=== PATIENT | female | born 1940 | race Caucasian/White ===

== ENCOUNTER 2016-12-27 12:34 | Outpatient (CLI) | payer MEDICARE, BC ==
--- NOTE | 2016-12-27 15:17 | MMO ---
SCREENING MAMMOGRAM: Date: 12/27/16 HISTORY: Screening. COMPARISON: Mammograms from 2015, 2014, 2013, 2013, and 2010. TECHNIQUE: CC and ML mammogram was performed. This patient's mammogram was interpreted with the assistance of computer-aided detection. FINDINGS: The breasts are extremely dense, which limits the sensitivity of mammography. There are benign calci fications in the left breast. No suspicious mass, microcalcifications, or architectural distortion. IMPRESSION: BIRADS 2: Benign Finding(s) Continued annual mammographic screening is recommended. POS: [facility]
--- NOTE | 2016-12-27 16:02 | BD ---
DEXA BONE MINERAL DENSITOMETRY STUDY: 12/27/16 HISTORY: Postmenopausal. Lumbar Spine: BMD (g/cm2) L1 0.708 T-Score: -2.6 L2 0.789 T-Score: -2.2 L3 0.863 T-Score: -2 L4 0.874 T-Score: -1.7 L1-L4 0.811 T-Score: -2.1 Left Femoral Neck: 0.598 T-Score: -2.3 Total Femur: 0.762 T-Score: -1.5 There is mild left convexed curvature of the lumbar spine with suggestion of mild degenerative escobar es in the lumbar spine. IMPRESSION: Moderate osteopenia of the lumbar spine and left femoral neck indicating a four fold increased risk for fracture. POS: [facility]
== END 2016-12-27 12:35 | disposition home or self-care (01) ==
LOC: MAMMO 12:34
PROVIDERS: ATTEND Family Medicine
DX: Z12.31 Encounter for screening mammogram for malignant neoplasm of breast (principal); M81.8 Other osteoporosis without current pathological fracture; M85.89 Other specified disorders of bone density and structure, multiple sites; Z79.899 Other long term (current) drug therapy
CPT/HCPCS: 77080; G0202; 77067

== ENCOUNTER 2017-06-21 12:55 | Outpatient (CLI) | payer MEDICARE, BC ==
--- NOTE | 2017-06-21 13:52 | RAD ---
TWO VIEW CHEST: HISTORY: Dyspnea. COMPARISON: 04/22/2011 FINDINGS: The lung guillaume are clear with no infiltrates seen. No evidence of vascular congestion. The heart a nd mediastinum appear unremarkable. Surgical clips in the right axilla again noted. Deformities in the right posterior ribs from old fra ctures again noted. There is mild hyperexpansion, consistent with COPD. There is a focal sclerosis seen in the left humeral neck region. This was partially imaged in 2012, and it appears to represent a stable benign sclerosis. IMPRESSION: No acute process. Chronic changes, as above. POS: [facility]
== END 2017-06-21 12:56 | disposition home or self-care (01) ==
LOC: RAD 12:55
PROVIDERS: ATTEND Internal Medicine Critical Care Medicine
DX: R06.00 Dyspnea, unspecified (principal); M95.4 Acquired deformity of chest and rib
CPT/HCPCS: 71046

== ENCOUNTER 2018-07-26 10:14 | Outpatient (CLI) | payer MEDICARE, BC ==
--- NOTE | 2018-07-26 11:12 | RAD ---
RADIOGRAPH CHEST 2 VIEWS: HISTORY: An 78-year-old female with dyspnea. FINDINGS: There is hyperinflation of the lungs, consistent with COPD. There is no evidence of air space densit y, pneumothorax, or pulmonary edema. There is no cardiomegaly or pleural effusion. IMPRESSION: 1) No acute cardiopulmonary findings. 2) Emphysema. jn [] POS: [facility]
== END 2018-07-26 10:15 | disposition home or self-care (01) ==
LOC: RAD 10:14
PROVIDERS: ATTEND Internal Medicine Critical Care Medicine
DX: R06.00 Dyspnea, unspecified (principal); J43.9 Emphysema, unspecified
CPT/HCPCS: 71046

== ENCOUNTER 2019-09-16 07:15 | Outpatient (CLI) | payer MEDICARE, BC, OTHER ==
[2019-09-16 14:03] LABS: #Eosinphils 0.2 thou/uL (0.0-0.7); #Lymphocytes 1.3 thou/uL (1.20-3.40); #Monocytes 0.5 thou/uL (0.11-0.59); #Neutrophils 3.4 thou/uL (1.40-6.50); %Basophils 0.7 % (0.0-1.0); %Eosinophils 3.4 % (0.0-10.0); %Lymphocytes 23.9 % (21.0-51.0); %Monocytes 9.5 % (0.0-10.0); %Neutrophils 62.5 % (42.0-75.0); Hemoglobin 13.1 g/dL (12.0-16.0); Mean Corpuscular HGB CONC 33.4 g/dL (32.0-36.0); Mean Corpuscular Hemoglobin 32.3 pg (27.0-31.0); Mean Corpuscular Volume 96.7 fL (78.0-98.0); Mean Platelet Volume 9.6 fL (7.4-10.4); Platelet Count 203 thou/uL (130-400); Red Blood Cell (RBC) Count 4.04 mill/uL (4.20-5.40); White Blood Cell (WBC) Count 5.4 thou/uL (4.8-10.8)
[2019-09-16 14:10] LABS: Anion Gap 12 mmol/L (10-20); BUN (Urea Nitrogen) 24 mg/dL (9.8-20.1); Calc. Creatinine Clearance 0 mL/min (70-130); Calcium 9.2 mg/dL (7.8-10.44); Carbon Dioxide 24 mmol/L (23-31); Chloride 107 mmol/L (98-107); Estimated GFR-MDRD 50; Glucose 93 mg/dL (83-110); Potassium 4.3 mmol/L (3.5-5.1); Sodium 139 mmol/L (136-145)
[2019-09-16 14:25] LABS: INR-International Normal Ratio 1.2; Prothrombin Time 15.4 sec (12.0-14.7)
[2019-09-17 12:22] LABS: SARS-CoV-2 MS2 Positive; SARS-CoV-2 N Gene Negative; SARS-CoV-2 S Gene Negative; SARS-CoV-2 orf1ab Negative
== END 2019-09-16 07:16 | disposition home or self-care (01) ==
LOC: LABBT 07:15
PROVIDERS: ATTEND Internal Medicine Cardiovascular Disease
DX: Z01.818 Encounter for other preprocedural examination (principal); Z11.59 Encounter for screening for other viral diseases; I48.91 Unspecified atrial fibrillation; R07.9 Chest pain, unspecified
CPT/HCPCS: 80048; 85025; 85610; 85730; 93005; U0003; 87635; 93010

== ENCOUNTER → 2019-09-19 | Day surgery (SDC) | payer MEDICARE, BC ==
[2019-09-13 12:42] VITALS: BMI 16.9
[~2019-09-19] MED LIST: PROPOFOL 20 ML ONE
--- NOTE | 2019-09-20 05:11 | OP ---
DATE OF PROCEDURE: 09/19/2019 PROCEDURE PERFORMED: Transesophageal echocardiogram. INDICATIONS: An 79-year-old woman with mitral regurgitation. DESCRIPTION OF PROCEDURE: The patient was taken to the PACU. The patient was sedated by Anesthesiology. A transesophageal probe was placed into the distal esophagus and stomach. Echocardiographic images were obtained. The transesophageal probe was removed. FINDINGS: 1. Mild decrease in left ventricular systolic function. 2. Marked biatrial enlargement. 3. Moderate to severe mitral regurgitation. 4. Mild tricuspid regurgitation. 5. No thrombus noted in the left atrium or left atrial appendage. 6. Atherosclerotic debris in the descending aorta. IMPRESSION: No formed thrombus in the left atrium or left atrial appendage. Job ID: [id number]
--- NOTE | 2019-09-20 05:16 | OP ---
DATE OF PROCEDURE: 09/19/2019 PROCEDURE PERFORMED: Electrical cardioversion. INDICATION: Nneka Hernandez is an 79-year-old woman with paroxysmal atrial fibrillation. DESCRIPTION OF PROCEDURE: The patient was taken to the PACU. The patient was sedated by Anesthesiology. The patient was shocked with 200 joules of synchronized electricity. The patient converted to normal sinus rhythm. IMPRESSION: Successful electrical cardioversion. Job ID: [id number]
== END ==
LOC: SDC 06:48
PROVIDERS: ATTEND Internal Medicine Cardiovascular Disease
PROC: 5A2204Z Restoration of Cardiac Rhythm, Single (ICD-10-PCS; principal; 2019-09-19)
PROC: B24BZZ4 Ultrasonography of Heart with Aorta, Transesophageal (ICD-10-PCS; 2019-09-19)
DX: I48.0 Paroxysmal atrial fibrillation (principal); I34.0 Nonrheumatic mitral (valve) insufficiency; I34.1 Nonrheumatic mitral (valve) prolapse; I70.0 Atherosclerosis of aorta; I07.1 Rheumatic tricuspid insufficiency; R07.89 Other chest pain; I87.2 Venous insufficiency (chronic) (peripheral); J98.4 Other disorders of lung; Z79.01 Long term (current) use of anticoagulants; Z79.810 Long term (current) use of selective estrogen receptor modulators (SERMs); Z79.899 Other long term (current) drug therapy
CPT/HCPCS: 92960; 93005; 93010; 93312; J2704

== ENCOUNTER 2019-09-25 12:55 | Outpatient (CLI) | payer MEDICARE, BC ==
--- NOTE | 2019-09-25 13:38 | RAD ---
PA AND LATERAL VIEWS CHEST: Date: 09/25/2019 HISTORY: Dyspnea. COMPARISON: 07/26/2018. FINDINGS: The heart size is normal. The aorta is tortuous. The lungs are well expanded with changes of COPD. No lobar consolidation, pneumothoraces, or pleural effusions are seen. There are old right-sided rib fr actures. IMPRESSION: No acute process. POS: [facility]
== END 2019-09-25 12:56 | disposition home or self-care (01) ==
LOC: BICRAD 12:55
PROVIDERS: ATTEND Internal Medicine Critical Care Medicine
DX: R06.00 Dyspnea, unspecified (principal)
CPT/HCPCS: 71046

== ENCOUNTER 2020-04-28 12:17 | Outpatient (CLI) | payer MEDICARE, BC ==
--- NOTE | 2020-04-28 12:49 | RAD ---
EXAM: Chest PA and lateral: HISTORY: Dyspnea COMPARISON: 09/25/2019 FINDINGS: Lung guillaume are clear. Patchy density in the left lung base along the cardiac silhouette is a stable finding. Nodule in the peripheral right midlung is stable. Calcified nodule in the left lower lobe is stable. Vascular markings are normal. Hyperexpansion again noted. Heart and mediastinum appear unremarkable. Old right rib fractures again noted. Surgical clips right axilla again noted. IMPRESSION: No acute finding
== END 2020-04-28 12:18 | disposition home or self-care (01) ==
LOC: BICRAD 12:17
PROVIDERS: ATTEND Internal Medicine Critical Care Medicine
DX: R06.00 Dyspnea, unspecified (principal)
CPT/HCPCS: 71046

== ENCOUNTER 2021-04-28 09:20 | Outpatient (CLI) | payer MEDICARE, BC | END 2021-04-28 09:21 | disposition home or self-care (01) | LOC: RAD 09:20 | PROVIDERS: ATTEND Internal Medicine Critical Care Medicine | DX: R06.00 Dyspnea, unspecified (principal) | CPT/HCPCS: 71046 ==

== ENCOUNTER 2022-04-28 08:53 | Outpatient (CLI) | payer MEDICARE, BC | END 2022-04-28 08:54 | disposition home or self-care (01) | LOC: RAD 08:53 | PROVIDERS: ATTEND Internal Medicine Critical Care Medicine | DX: R06.00 Dyspnea, unspecified (principal); J98.4 Other disorders of lung | CPT/HCPCS: 71046 ==

== ENCOUNTER 2023-04-27 07:37 | Outpatient (CLI) | payer MEDICARE, BC | END 2023-04-27 07:38 | disposition home or self-care (01) | LOC: RAD 07:37 | PROVIDERS: ATTEND Internal Medicine Critical Care Medicine | DX: R06.00 Dyspnea, unspecified (principal) | CPT/HCPCS: 71046 ==

== ENCOUNTER 2023-08-25 07:58 | Outpatient (CLI) | payer MEDICARE, BC | END 2023-08-25 07:59 | disposition home or self-care (01) | LOC: RAD 07:58 | PROVIDERS: ATTEND Internal Medicine Critical Care Medicine | DX: R06.00 Dyspnea, unspecified (principal); J84.10 Pulmonary fibrosis, unspecified; J98.4 Other disorders of lung; I70.90 Unspecified atherosclerosis; M85.80 Other specified disorders of bone density and structure, unspecified site; I51.7 Cardiomegaly | CPT/HCPCS: 71046 ==